=== PATIENT | male | born 1970 | race Two or more races ===

== ENCOUNTER 2024-07-14 14:32 | Emergency (ER) | payer SELFPAY ==
[~2024-07-14] VITALS: Ht 167.6 cm; Wt 94.2 kg
[2024-07-14 18:22] VITALS: BP 156/89; PULSE 103; RESP 16; TEMP 97.9; O2SAT 97
[2024-07-14] MEDS ORDERED: DOXY100C4 PO (19:42)
[2024-07-14] MEDS ORDERED: METH4PAK PO (19:42)
== END 2024-07-14 20:06 | disposition home or self-care (01) ==
LOC: ER 14:32
DX: R60.0 Localized edema (principal); I82.401 Acute embolism and thrombosis of unspecified deep veins of right lower extremity
CPT/HCPCS: 73630; 93971